=== PATIENT | female | born 1940 ===

== ENCOUNTER 2020-02-10 21:53 | Inpatient (IN) | payer MEDICARE, OTHER ==
[~2020-02-10] VITALS: Ht 152.4 cm; Wt 59.0 kg
[2020-02-10] MEDS ORDERED: VANCOMYCIN IV 1,000 MG in IV DEXTROSE 5% 250 ML IV ONE (23:00)
[2020-02-10] MEDS ORDERED: PIPERACILLIN SODIUM/TAZOBACTAM 3.375 G in IV DEXTROSE 5% 50 ML IV ONE (23:00)
[2020-02-10] MEDS ORDERED: CEFTRIAXONE 1 G in IV DEXTROSE 5% 50 ML IV ONE (23:00)
[2020-02-10] MEDS ORDERED: AMLO10TA59 PO (23:10)
[2020-02-10] MEDS ORDERED: CRAN425C6 PO (23:10)
[2020-02-10] MEDS ORDERED: ROSU20TA2 PO (23:10)
[2020-02-10] MEDS ORDERED: CHOL10005 PO (23:10)
[2020-02-10] MEDS ORDERED: MIRT-121 PO (23:10)
[2020-02-10] MEDS ORDERED: ICOS1CAP PO (23:10)
[2020-02-10] MEDS ORDERED: MEMA5TAB PO (23:10)
[2020-02-10] MEDS ORDERED: ASCO500C18 PO (23:10)
[2020-02-10] MEDS ORDERED: ZINC1CAP2 PO (23:10)
[2020-02-10] MEDS ORDERED: ICOS1CAP2 (23:10)
[2020-02-10] MEDS ORDERED: ACET-2154 PO (23:10)
[2020-02-10] MEDS ORDERED: COLL30OI TOP (23:10)
[2020-02-10] MEDS ORDERED: INSU100V28 (23:10)
[2020-02-10] MEDS ORDERED: MULT-213 PO (23:10)
[2020-02-10] MEDS ORDERED: DOCU-141 PO (23:10)
[2020-02-10] MEDS ORDERED: AMIN30LI27 PO (23:10)
[2020-02-10] MEDS ORDERED: MAGN400O6 PO (23:10)
[2020-02-10] MEDS ORDERED: quercetin PO (23:10)
[2020-02-10 23:30] LABS: BASOPHILS % (AUTO) 0.4 % (0.0-2.0); EOSINOPHILS # (AUTO) 0.1 K/uL (0.0-0.7); EOSINOPHILS % (AUTO) 0.7 % (0.0-7.0); HEMATOCRIT 28.6 % (31.2-41.9); HEMOGLOBIN 9.2 g/dL (10.9-14.3); LYMPHOCYTES # (AUTO) 1.7 K/uL (20.0-40.0); LYMPHOCYTES % (AUTO) 19.9 % (20.5-51.5); MEAN CORPUSCULAR HEMOGLOBIN 25.6 uug (24.7-32.8); MEAN CORPUSCULAR HGB CONC 32 g/dL (32.3-35.6); MEAN CORPUSCULAR VOLUME 79.2 fL (75.5-95.3); MONOCYTES # (AUTO) 0.4 K/uL (2.0-10.0); MONOCYTES % (AUTO) 4.9 % (0.0-11.0); NEUTROPHILS # (AUTO) 6.3 K/uL (1.8-8.9); NEUTROPHILS % (AUTO) 74.1 % (38.5-71.5); PLATELET COUNT (AUTO) 327 K/uL (179-408); RED BLOOD CELL COUNT(AUTO) 3.61 MIL/uL (3.63-4.92); WHITE BLOOD COUNT (AUTO) 8.4 K/uL (3.8-11.8)
[2020-02-10 23:41] LABS: CREATININE 0.8 mg/dL (0.6-1.3); POTASSIUM 3.8 mmol/L (3.5-5.1)
[2020-02-10] MEDS ORDERED: VANCOMYCIN IV 200 ML ONE (23:43)
[2020-02-10] MEDS ORDERED: PIPERACILLIN/TAZOBACTAM/D5W 50 ML IV ONE (23:43)
[2020-02-10] MEDS ORDERED: CEFTRIAXONE /D5W 50ML IVPB **ER PYXIS IV ONE (23:43)
[2020-02-10 23:54] LABS: BILIRUBIN,DIRECT 0.1 mg/dL (0.0-0.2); BILIRUBIN,TOTAL 0.2 mg/dL (0.2-1.0); TOTAL PROTEIN, SERUM 6.8 g/dL (6.4-8.2)
--- NOTE | 2020-02-11 00:04 | NUR ---
US at bedside for scan.
[2020-02-11] MEDS ORDERED: OLANZAPINE 10 MG VIAL IM ONE ×2 (01:00→01:04)
[2020-02-11] MEDS ORDERED: ACETAMINOPHEN 325 MG TABLET PO PRN ×2 (01:45)
[2020-02-11] MEDS ORDERED: DEXTROSE 50% 50 ML DISP.SYRIN IV PRN (01:45)
[2020-02-11] MEDS ORDERED: MAGNESIUM HYDROXIDE 30 ML LIQUID UDC PO PRN ×2 (01:45)
[2020-02-11] MEDS ORDERED: Z GUARD REMEDY PASTE 57 GM TUBE TOP PRN (01:45)
[2020-02-11] MEDS ORDERED: ENOXAPARIN SODIUM 40 MG/0.4 ML DISP.SYRIN SQ SCH (01:45)
[2020-02-11] MEDS ORDERED: ONDANSETRON 4 MG/2 ML VIAL IV PRN (01:45)
--- NOTE | 2020-02-11 05:10 | NUR ---
ADMITTED PATIENT ON TELE FLOOR UNDER THE CARE OF MARIAM HORTA. PATIENT AWAKE SPEAK TURKMEN BUT UNDER SIMPLE TAMAZIGHT. PATIENT INCONTINENT OF BLADDER, WITH R FOOT CELLULITIS SWELLING AND DRAINING WITH CLEAR COLOR FLUIDS IN MODERATE AMOUNT. PATIENT TELE MONITOR SINUS RHYTHM, PATIENT FORGETFUL MULTIPLE TIMES OF TRYING TO PULLED OUT IV LINES, REDIRECTED BUT FORGETFUL. CONT TO MONITOR.
--- NOTE | 2020-02-11 05:10 | NUR ---
Report given to BRAYAN Diaz Patient transported to [place] in stable condition.
[2020-02-11 05:20] VITALS: BP 151/68
[2020-02-11] MEDS: PANTOPRAZOLE SODIUM 40 MG TABLET.DR PO SCH (07:09)
[2020-02-11] MEDS: BLOOD SUGAR DIAGNOSTIC 1 EACH STRIP VI SCH ×4 (07:15→21:16)
[2020-02-11] MEDS: IV NS 1000 ML 1,000 ML IV PRN (07:35)
--- NOTE | 2020-02-11 07:40 | NUR ---
RECEIVED PATIENT IN ROOM ASLEEP, CONFUSED. WITHDRAWS TO PAIN STIMULATION. NO SIGNS OF DISTRESS AT THIS TIME. RIGHT FOOT WRAPED IN KERLEX AND INTACT. LT HAD IV INTACT. SAFETY AND FALL PRECAUTIONS IN PLACE. WILL CONTINUE TO MONITOR.
[2020-02-11] MEDS: CEFEPIME HCL 2 G in IV DEXTROSE 5% 100 ML IV SCH ×3 (08:30→21:04)
[2020-02-11] MEDS ORDERED: Medication Not On Formulary EA (Cranberry Extract (Cranberry) 425 MG) PO SCH (09:00)
[2020-02-11] MEDS: PROTEIN SUPPLEMENT (PROSTAT) 30 ML LIQUID PO SCH (09:00)
[2020-02-11] MEDS: MEMANTINE HCL 5 MG TABLET PO SCH (09:00)
[2020-02-11] MEDS ORDERED: QUERCETIN 500 MG PO SCH (09:00)
[2020-02-11] MEDS: CHOLECALCIFEROL 1,000 UNIT TABLET PO SCH (09:00)
[2020-02-11] MEDS: DOCUSATE SODIUM 100 MG CAPSULE PO SCH (09:00)
[2020-02-11] MEDS: MULTIVITAMINS,THERAPEUTIC TABLET PO SCH (09:00)
[2020-02-11] MEDS: ASCORBIC ACID 500 MG TABLET PO SCH (09:00)
[2020-02-11] MEDS: AMLODIPINE 10 MG TABLET PO SCH (09:00)
[2020-02-11] MEDS: ZINC SULFATE 220 MG CAPSULE PO SCH (09:00)
--- NOTE | 2020-02-11 09:34 | NUR ---
MAXEPINE IV ABX GIVEN AT 0830. LARRY OPERATOR NURSE UNABLE TO GIVE. PATIENT VERY CONFUSED AND LETHARGIC. UNABLE TO GIVE AM MEDICATIONS ORDERED.
[2020-02-11] MEDS: VANCOMYCIN IV 750 MG in IV DEXTROSE 5% 250 ML IV SCH (11:26)
[2020-02-11 12:00] VITALS: BP 126/51
[2020-02-11] MEDS ORDERED: LIDOCAINE HCL 1% 20 ML VIAL IJ ONE (14:30)
[2020-02-11 16:00] VITALS: BP 107/59
[2020-02-11 17:07] LABS: BASOPHILS % (AUTO) 0.6 % (0.0-2.0); EOSINOPHILS % (AUTO) 0.5 % (0.0-7.0); HEMATOCRIT 29.2 % (31.2-41.9); HEMOGLOBIN 9.4 g/dL (10.9-14.3); LYMPHOCYTES # (AUTO) 1.4 K/uL (20.0-40.0); LYMPHOCYTES % (AUTO) 18.4 % (20.5-51.5); MEAN CORPUSCULAR HEMOGLOBIN 25.6 uug (24.7-32.8); MEAN CORPUSCULAR HGB CONC 32 g/dL (32.3-35.6); MEAN CORPUSCULAR VOLUME 79.3 fL (75.5-95.3); MONOCYTES # (AUTO) 0.4 K/uL (2.0-10.0); MONOCYTES % (AUTO) 4.9 % (0.0-11.0); NEUTROPHILS # (AUTO) 5.8 K/uL (1.8-8.9); NEUTROPHILS % (AUTO) 75.6 % (38.5-71.5); PLATELET COUNT (AUTO) 329 K/uL (179-408); RED BLOOD CELL COUNT(AUTO) 3.68 MIL/uL (3.63-4.92); WHITE BLOOD COUNT (AUTO) 7.7 K/uL (3.8-11.8)
[2020-02-11 17:18] LABS: CREATININE 0.8 mg/dL (0.6-1.3); POTASSIUM 4.1 mmol/L (3.5-5.1)
[2020-02-11 17:32] LABS: BILIRUBIN,TOTAL 0.2 mg/dL (0.2-1.0); MAGNESIUM 2.2 mg/dL (1.8-2.4); PHOSPHOROUS 3.5 mg/dL (2.5-4.9); TOTAL PROTEIN, SERUM 6.4 g/dL (6.4-8.2)
[2020-02-11 17:43] LABS: THYROID STIMULATING HORMONE 4.253 mIU/mL (0.358-3.740)
--- NOTE | 2020-02-11 19:30 | NUR ---
RECEIVED PT AWAKE AND IN NO ACUTE DISTRESS. IV INTACT.SAFETY AND COMFORT PROVIDED. WILL CONTINUE TO MONITOR.
[2020-02-11 20:07] VITALS: BP 137/64
[2020-02-11] MEDS: ATORVASTATIN 40 MG TABLET PO SCH (20:56)
[2020-02-11] MEDS: MIRTAZAPINE 15 MG TABLET PO SCH (20:56)
[2020-02-11] MEDS: ENOXAPARIN SODIUM 40 MG/0.4 ML DISP.SYRIN SQ SCH (20:57)
[2020-02-11 21:00] VITALS: BP 141/61
[2020-02-11] MEDS: HYDROCODONE/APAP 5-325MG TABLET PO PRN (22:33)
--- NOTE | 2020-02-11 23:33 | NUR ---
PT GIVEN NORCO PRN AT 2233H FOR PAIN. PT WOUND DRESSING CHANGED AND TOOK PICTURE FOR CHARTING. AFTER AN HOUR PT RESTING WELL AND PAIN SUBSIDED PER PT. SAFETY PROVIDED. WILL CONTINUE TO MONITOR.
[2020-02-12 04:06] VITALS: BP 121/85
[2020-02-12] MEDS: CEFEPIME HCL 2 G in IV DEXTROSE 5% 100 ML IV SCH ×3 (05:00→22:26)
[2020-02-12] MEDS: PANTOPRAZOLE SODIUM 40 MG TABLET.DR PO SCH (06:06)
--- NOTE | 2020-02-12 06:13 | NUR ---
PT SLEPT COMFORTABLY. PT IN NO ACUTE DISTRESS. IV INTACT. PT ON SOFT RESTRAINT. PT TURNED AND REPOSITIONED. DRESSING CHANGED. SAFETY AND COMFORT PROVIDED. WILL ENDORSE TO INCOMING NURSE FOR CONTINUITY OF CARE.
[2020-02-12] MEDS: BLOOD SUGAR DIAGNOSTIC 1 EACH STRIP VI SCH ×5 (06:33→22:00)
--- NOTE | 2020-02-12 07:49 | NUR ---
WOUND CARE CONSULT: (LATE ENTRY) PT WAS SEEN FOR SKIN ASSESSMENT ON 02/12/20 AND NOTED TO HAVE ULCERS WITH SWELLING AND PURULENT DRAINAGE TO RT DORSAL AND PLANTAR FOOT, PRESENT ON ADMISSION. DPM CONSULT WAS CALLED TO DR GRANDE. RECOMMENDATIONS MADE FOR SKIN PROTECTION. DISCUSSED WITH NURSING STAFF. IN AGREEMENT WITH PLAN OF CARE. Addendum: 02/12/20 at 0753 by YANY MEADE RN CORRECTION: PT WAS SEEN ON 02/11/20 FOR WOUND ASSESSMENT.
[2020-02-12] MEDS: DOCUSATE SODIUM 100 MG CAPSULE PO SCH (09:22)
[2020-02-12] MEDS: MEMANTINE HCL 5 MG TABLET PO SCH (09:23)
[2020-02-12] MEDS: AMLODIPINE 10 MG TABLET PO SCH (09:27)
[2020-02-12] MEDS: ASCORBIC ACID 500 MG TABLET PO SCH (09:27)
[2020-02-12] MEDS: CHOLECALCIFEROL 1,000 UNIT TABLET PO SCH (09:28)
[2020-02-12] MEDS: MULTIVITAMINS,THERAPEUTIC TABLET PO SCH (09:30)
[2020-02-12] MEDS: PROTEIN SUPPLEMENT (PROSTAT) 30 ML LIQUID PO SCH (09:30)
[2020-02-12] MEDS: ZINC SULFATE 220 MG CAPSULE PO SCH (09:31)
[2020-02-12] MEDS: OMEGA-3 FATTY ACIDS/FISH OIL CAPSULE PO SCH (09:31)
[2020-02-12] MEDS: IV NS 1000 ML 1,000 ML IV PRN (10:05)
[2020-02-12] MEDS: VANCOMYCIN IV 750 MG in IV DEXTROSE 5% 250 ML IV SCH (11:23)
[2020-02-12 11:52] VITALS: BP 113/58
[2020-02-12] MEDS: INSULIN REGULAR, HUMAN 300 UNIT/3 ML VIAL SQ PRN (11:53)
--- NOTE | 2020-02-12 12:35 | NUR ---
Pt. for MRI right foot today for right foot pain and cellulitis. supervisor grips by ambulance at 1345. Pt. no c/o of pain/discomfort noted. Pt. continue IV ATB tx for cellulitis. will continue monitor
[2020-02-12 13:25] LABS: CREATININE 0.7 mg/dL (0.6-1.3)
--- NOTE | 2020-02-12 15:54 | NUR ---
Pt. left for MRI right foot via ambulance with 2 EMT in stable condition around 2pm. Remove soft restraint with fair effect. Advice EMT to check Pt for IV access removal.
[2020-02-12 16:39] VITALS: BP 128/53
--- NOTE | 2020-02-12 17:42 | NUR ---
End of Shift note: Pt. came back from MRI in stable condition around 4pm. Pt. stay without soft restraint to observe her behavior. After 30minutes, Pt. remove IV access and went out from bed without asking for help. Urinate in the floor. Pt. return back to bed with assistance and put back the restraint. will continue monitor
--- NOTE | 2020-02-12 19:00 | NUR ---
Pt. seen walking inside the room. Urinate in the floor. Pt. able to remove restraint and pulled out IV. Pt. assisted going back to bed. applied restraint. no skin issue noted. Pt for IV reinsertion. endorse to oncoming nurse
--- NOTE | 2020-02-12 20:00 | NUR ---
RECEIVED PT IN BED, CONFUSED AND ANXIOUS, ACCIDENTALLY PULLED OUT HER IV ON LEFT HAND, NEEDS ATTENDEDTO..NO ACUTE DISTRESS NOTED.WANDERER, ABLE TO GET OUT OF THE RESTRAINT, ASSISTED TO BR VOIDED FREELY WELL,KEPT DRY AND CLEAN,
[2020-02-12 20:06] VITALS: BP 162/80
[2020-02-12] MEDS: ENOXAPARIN SODIUM 40 MG/0.4 ML DISP.SYRIN SQ SCH (22:37)
[2020-02-12] MEDS: ATORVASTATIN 40 MG TABLET PO SCH (22:38)
[2020-02-12] MEDS: MIRTAZAPINE 15 MG TABLET PO SCH (22:38)
--- NOTE | 2020-02-13 | NUR ---
INCONTINENT OF URINE, REPOSITIONED IN BED, COMPLETE LINEN CHANGED DONE.DUE MEDS GIVEN.TOLERATED WELL.
[2020-02-13 04:50] VITALS: BP 127/62
--- NOTE | 2020-02-13 04:57 | NUR ---
PT FOUND STANDING BY THE DOOR,,SHE DOESNT REALIZE THAT SHE IS PULLING HER IV POLE.INSTRUCTED TO GO BACK TO BED,KIND A HESITANT, AM CARE DONE.CONTINUE TO MONITOR BEHAVIOR.
[2020-02-13] MEDS: CEFEPIME HCL 2 G in IV DEXTROSE 5% 100 ML IV SCH ×3 (05:59→22:18)
[2020-02-13] MEDS: PANTOPRAZOLE SODIUM 40 MG TABLET.DR PO SCH (06:00)
--- NOTE | 2020-02-13 07:20 | NUR ---
Received PT in bed, awake and alert. No acute distress or no shortness of breath noted. PT looked calm and relaxed. Safety measures provided, call light within reach, bed low and lock. Will continue to monitor.
[2020-02-13] MEDS: BLOOD SUGAR DIAGNOSTIC 1 EACH STRIP VI SCH ×3 (07:24→17:02)
[2020-02-13 08:00] VITALS: BP 118/50
[2020-02-13] MEDS: MEMANTINE HCL 5 MG TABLET PO SCH (09:00)
[2020-02-13] MEDS: MULTIVITAMINS,THERAPEUTIC TABLET PO SCH (09:00)
[2020-02-13] MEDS: ZINC SULFATE 220 MG CAPSULE PO SCH (09:00)
[2020-02-13] MEDS: CHOLECALCIFEROL 1,000 UNIT TABLET PO SCH (09:00)
[2020-02-13] MEDS: OMEGA-3 FATTY ACIDS/FISH OIL CAPSULE PO SCH (09:00)
[2020-02-13] MEDS: PROTEIN SUPPLEMENT (PROSTAT) 30 ML LIQUID PO SCH (09:01)
[2020-02-13] MEDS: DOCUSATE SODIUM 100 MG CAPSULE PO SCH (09:01)
[2020-02-13] MEDS: ASCORBIC ACID 500 MG TABLET PO SCH (09:01)
[2020-02-13] MEDS: AMLODIPINE 10 MG TABLET PO SCH (09:02)
--- NOTE | 2020-02-13 10:00 | NUR ---
PT was found standing by the door and pulling on the IV site. PT was trying to pull tubes out. Had to redirect PT back to bed. Safety measure provided, call light within reach, bed alarm on, bed low and lock. Will continue to monitor.
[2020-02-13] MEDS: VANCOMYCIN IV 750 MG in IV DEXTROSE 5% 250 ML IV SCH (11:31)
[2020-02-13] MEDS: INSULIN REGULAR, HUMAN 300 UNITS/3 ML VIAL SQ PRN ×2 (11:32→17:11)
[2020-02-13 12:00] VITALS: BP 144/66
--- NOTE | 2020-02-13 14:45 | NUR ---
PT was seen by Dr. Angela Wells RE: foot wound. Scheduled IND procedure for tomorrow, Tuesday 02/13 at 1430. PT's son spoke to MD. Consent was given over the phone to 2 nurses. Son spoke to PT on the phone and PT aware of procedure tomorrow. Dr. Bartholomew made aware. Safety measures provided, call light within reach, bed low and lock.
--- NOTE | 2020-02-13 18:25 | NUR ---
PT in awake and standing up near door. Needs frequent redirection to use call light when standing due to safety. PT put back to bed with safety measures. Call light within reach, bed low and lock. Continue to monitor for safety. Will endorse to lead applications developer nurse.
[2020-02-13] MEDS: IV NS 1000 ML 1,000 ML IV PRN (18:40)
[2020-02-13 20:12] VITALS: BP 155/73
[2020-02-13] MEDS: ATORVASTATIN 40 MG TABLET PO SCH (22:08)
[2020-02-13] MEDS: MIRTAZAPINE 15 MG TABLET PO SCH (22:09)
[2020-02-13] MEDS: ENOXAPARIN SODIUM 40 MG/0.4 ML DISP.SYRIN SQ SCH (22:16)
[2020-02-14 04:18] VITALS: BP 130/61
[2020-02-14] MEDS: PANTOPRAZOLE SODIUM 40 MG TABLET.DR PO SCH (06:29)
[2020-02-14] MEDS: CEFEPIME HCL 2 G in IV DEXTROSE 5% 100 ML IV SCH ×3 (06:30→21:23)
[2020-02-14] MEDS: ZINC SULFATE 220 MG CAPSULE PO SCH (10:40)
[2020-02-14] MEDS: BLOOD SUGAR DIAGNOSTIC 1 EACH STRIP VI SCH ×4 (10:40→21:34)
[2020-02-14] MEDS: OMEGA-3 FATTY ACIDS/FISH OIL CAPSULE PO SCH (10:41)
[2020-02-14] MEDS: ASCORBIC ACID 500 MG TABLET PO SCH (10:41)
[2020-02-14] MEDS: CHOLECALCIFEROL 1,000 UNIT TABLET PO SCH (10:41)
[2020-02-14] MEDS: DOCUSATE SODIUM 100 MG CAPSULE PO SCH (10:41)
[2020-02-14] MEDS: MULTIVITAMINS,THERAPEUTIC TABLET PO SCH (10:41)
[2020-02-14] MEDS: MEMANTINE HCL 5 MG TABLET PO SCH (10:41)
[2020-02-14] MEDS: AMLODIPINE 10 MG TABLET PO SCH (10:44)
[2020-02-14] MEDS: PROTEIN SUPPLEMENT (PROSTAT) 30 ML LIQUID PO SCH (10:45)
[2020-02-14 11:47] VITALS: BP 103/64
[2020-02-14] MEDS: VANCOMYCIN IV 750 MG in IV DEXTROSE 5% 250 ML IV SCH (12:20)
[2020-02-14 16:08] VITALS: BP 127/48
[2020-02-14] MEDS: INSULIN REGULAR, HUMAN 300 UNIT/3 ML VIAL SQ PRN (16:14)
[2020-02-14 20:18] VITALS: BP 142/69
[2020-02-14] MEDS: ATORVASTATIN 40 MG TABLET PO SCH (21:29)
[2020-02-14] MEDS: MIRTAZAPINE 15 MG TABLET PO SCH (21:29)
[2020-02-14] MEDS: ENOXAPARIN SODIUM 40 MG/0.4 ML DISP.SYRIN SQ SCH (21:37)
--- NOTE | 2020-02-15 02:18 | NUR ---
AAO x1 Confused and disoriented. Admitted for right foot cellulitis. Right foot dressing intact. Patient for I & D of the right foot this am. NPO after MN. Consent signed. VSS. IVF's infusing well. IV ABT's given as scheduled. Tolerated well. No ill effects noted. Will monitor patient. Incontinent of urine x3 Kept clean and dry. Bilateral wrist restraints on. Fall precautions maintained. Siderails up for safety.
[2020-02-15 04:52] VITALS: BP 124/55
[2020-02-15] MEDS: CEFEPIME HCL 2 G in IV DEXTROSE 5% 100 ML IV SCH ×3 (05:05→21:45)
[2020-02-15] MEDS: VANCOMYCIN IV 750 MG in IV DEXTROSE 5% 250 ML IV SCH ×2 (05:53→23:37)
[2020-02-15] MEDS: PANTOPRAZOLE SODIUM 40 MG TABLET.DR PO SCH (06:13)
[2020-02-15] MEDS: BLOOD SUGAR DIAGNOSTIC 1 EACH STRIP VI SCH ×4 (06:33→21:39)
--- NOTE | 2020-02-15 06:51 | NUR ---
End of shift notes: Patient for I & D of the right foot today. NPO maintained. VSS. IVF's infusing well. IV ABT given as scheduled. Will monitor patient. no acute distress noted.
[2020-02-15] MEDS: MULTIVITAMINS,THERAPEUTIC TABLET PO SCH (09:00)
[2020-02-15] MEDS: PROTEIN SUPPLEMENT (PROSTAT) 30 ML LIQUID PO SCH (09:00)
[2020-02-15] MEDS: CHOLECALCIFEROL 1,000 UNIT TABLET PO SCH (09:00)
[2020-02-15] MEDS: ASCORBIC ACID 500 MG TABLET PO SCH (09:00)
[2020-02-15] MEDS: MEMANTINE HCL 5 MG TABLET PO SCH (09:00)
[2020-02-15] MEDS: DOCUSATE SODIUM 100 MG CAPSULE PO SCH (09:00)
[2020-02-15] MEDS: ZINC SULFATE 220 MG CAPSULE PO SCH (09:00)
[2020-02-15] MEDS: OMEGA-3 FATTY ACIDS/FISH OIL CAPSULE PO SCH (09:00)
[2020-02-15] MEDS: AMLODIPINE 10 MG TABLET PO SCH (09:00)
[2020-02-15 09:40] LABS: CREATININE 0.9 mg/dL (0.6-1.3); POTASSIUM 4.2 mmol/L (3.5-5.1)
[2020-02-15] MEDS ORDERED: DEXTROSE 50% 50 ML DISP.SYRIN ONE (09:40)
[2020-02-15] MEDS ORDERED: BUPIVACAINE PF 0.5% 30 ML VIAL ONE (10:09)
[2020-02-15 11:00] VITALS: BP 101/62
--- NOTE | 2020-02-15 12:00 | NUR ---
received from surgery sleeping comfortably at this time in no acute distress. og surgical drsg in place told by or nurse not to touch at this time. advance diet as nash
[2020-02-15 16:00] VITALS: BP 134/71
--- NOTE | 2020-02-15 16:43 | NUR ---
evening blood sugar 111 no cover needed
[2020-02-15 20:00] VITALS: BP 123/52
[2020-02-15] MEDS: MIRTAZAPINE 15 MG TABLET PO SCH ×2 (21:19→21:33)
[2020-02-15] MEDS: ATORVASTATIN 40 MG TABLET PO SCH (21:32)
[2020-02-15] MEDS: ENOXAPARIN SODIUM 40 MG/0.4 ML DISP.SYRIN SQ SCH (21:39)
[2020-02-16 04:00] VITALS: BP 122/46
--- NOTE | 2020-02-16 04:20 | NUR ---
S/P I & D of the right foot POD #1 Needs attended. Dressing intact. Will monitor patient. IVF's infusing well. On IV ABT given as scheduled. No acute distress noted. VSS. Kept comfortable. Incontinent of urine. No BM noted this shift. Will monitor patient.
[2020-02-16] MEDS: CEFEPIME HCL 2 G in IV DEXTROSE 5% 100 ML IV SCH ×3 (05:28→22:06)
[2020-02-16] MEDS: PANTOPRAZOLE SODIUM 40 MG TABLET.DR PO SCH (06:35)
[2020-02-16] MEDS: BLOOD SUGAR DIAGNOSTIC 1 EACH STRIP VI SCH ×4 (06:37→21:00)
[2020-02-16] MEDS: MULTIVITAMINS,THERAPEUTIC TABLET PO SCH (09:39)
[2020-02-16] MEDS: AMLODIPINE 10 MG TABLET PO SCH (09:39)
[2020-02-16] MEDS: MEMANTINE HCL 5 MG TABLET PO SCH (09:39)
[2020-02-16] MEDS: ZINC SULFATE 220 MG CAPSULE PO SCH (09:39)
[2020-02-16] MEDS: CHOLECALCIFEROL 1,000 UNIT TABLET PO SCH (09:39)
[2020-02-16] MEDS: DOCUSATE SODIUM 100 MG CAPSULE PO SCH (09:39)
[2020-02-16] MEDS: OMEGA-3 FATTY ACIDS/FISH OIL CAPSULE PO SCH (09:39)
[2020-02-16] MEDS: ASCORBIC ACID 500 MG TABLET PO SCH (09:39)
[2020-02-16] MEDS: PROTEIN SUPPLEMENT (PROSTAT) 30 ML LIQUID PO SCH (09:56)
--- NOTE | 2020-02-16 11:01 | NUR ---
Confused and disoriented. VS taken and recorded. BP 176/65 HR 79 All due meds given. Bilateral wrist restraints intact. IVF's infusing well. I & O monitor. No distress noted. Kept comfortable.
[2020-02-16 11:23] VITALS: BP 129/58
[2020-02-16] MEDS: INSULIN REGULAR, HUMAN 300 UNIT/3 ML VIAL SQ PRN (11:44)
[2020-02-16 15:28] VITALS: BP 124/58
--- NOTE | 2020-02-16 15:38 | NUR ---
Patient is able to follow simple commands. Resting and ad david in bed. Denies any pain or discomfort. She is able to track and responding well to questions in lummi language.
[2020-02-16] MEDS: VANCOMYCIN IV 750 MG in IV DEXTROSE 5% 250 ML IV SCH (18:02)
[2020-02-16 19:04] LABS: CREATININE 0.9 mg/dL (0.6-1.3); POTASSIUM 3.8 mmol/L (3.5-5.1)
--- NOTE | 2020-02-16 19:30 | NUR ---
Pt received awake and in bed. AOx2. Does not appear to be in any distress at this time. No SOB noted, pt on RA. Bed locked and in lowest position. Pt has mitten restraints due to safety concerns. No other issues or concerns at this time.
[2020-02-16 20:44] VITALS: BP 143/64
[2020-02-16] MEDS: ATORVASTATIN 40 MG TABLET PO SCH (22:07)
[2020-02-16] MEDS: ENOXAPARIN SODIUM 40 MG/0.4 ML DISP.SYRIN SQ SCH (22:09)
--- NOTE | 2020-02-16 22:20 | NUR ---
Pts glucose was 68. Was given orange juice. Pt is awake and alert to self. Does not appear to be in any acute distress at this time.
[2020-02-17] MEDS ORDERED: MIRTAZAPINE 15 MG TABLET PO ONE (01:00)
[2020-02-17] MEDS: HYDROCODONE/APAP 5-325MG TABLET PO PRN ×2 (04:34→22:59)
[2020-02-17 04:56] VITALS: BP 138/61
[2020-02-17] MEDS: IV NS 1000 ML 1,000 ML IV PRN (05:57)
[2020-02-17] MEDS: PANTOPRAZOLE SODIUM 40 MG TABLET.DR PO SCH (06:38)
[2020-02-17] MEDS: CEFEPIME HCL 2 G in IV DEXTROSE 5% 100 ML IV SCH ×3 (06:38→22:00)
[2020-02-17] MEDS: BLOOD SUGAR DIAGNOSTIC 1 EACH STRIP VI SCH ×4 (06:44→21:00)
--- NOTE | 2020-02-17 06:54 | NUR ---
Pt slept intermittently throughout the night. No SOB or pain at this time. Wound care and wound packing completed on R foot. Tolerated wound care well. Fluids and snacks offered throughout pt being on restraints. Safety and comfort provided. No other issues or concerns at this time. Will endorse to day shift.
[2020-02-17 07:58] LABS: CREATININE 0.9 mg/dL (0.6-1.3); POTASSIUM 3.1 mmol/L (3.5-5.1)
[2020-02-17] MEDS: POTASSIUM CHLORIDE 20 MEQ TAB.PRT.SR PO ONE ×2 (09:30→09:48)
[2020-02-17] MEDS: CHOLECALCIFEROL 1,000 UNIT TABLET PO SCH (09:47)
[2020-02-17] MEDS: MEMANTINE HCL 5 MG TABLET PO SCH (09:48)
[2020-02-17] MEDS: MULTIVITAMINS,THERAPEUTIC TABLET PO SCH (09:48)
[2020-02-17] MEDS: ASCORBIC ACID 500 MG TABLET PO SCH (09:48)
[2020-02-17] MEDS: ZINC SULFATE 220 MG CAPSULE PO SCH (09:48)
[2020-02-17] MEDS: OMEGA-3 FATTY ACIDS/FISH OIL CAPSULE PO SCH (09:48)
[2020-02-17] MEDS: DOCUSATE SODIUM 100 MG CAPSULE PO SCH (09:48)
[2020-02-17] MEDS: PROTEIN SUPPLEMENT (PROSTAT) 30 ML LIQUID PO SCH (09:49)
[2020-02-17] MEDS: AMLODIPINE 10 MG TABLET PO SCH (10:00)
[2020-02-17] MEDS: VANCOMYCIN IV 750 MG in IV DEXTROSE 5% 250 ML IV SCH (11:13)
--- NOTE | 2020-02-17 11:40 | NUR ---
ATTEMPTED TO GIVE PATIENT ONE TIME ORDER OF POTASSIUM PILL. PATIENT UNABLE TO SWALLOW LARGE PILLS. SPIT OUT FIRST PILL AND REFUSED TO TAKE THE OTHER. WILL NOTIFY .
[2020-02-17] MEDS: INSULIN REGULAR, HUMAN 300 UNIT/3 ML VIAL SQ PRN (11:45)
[2020-02-17 12:00] VITALS: BP 153/66
[2020-02-17] MEDS ORDERED: POTASSIUM CHLORIDE 20 MEQ POWDER PACKET PO ONE (12:30)
[2020-02-17 16:00] VITALS: BP 130/61
--- NOTE | 2020-02-17 16:17 | NUR ---
BLOOD GLUCOSE: 65. HYPOGLYCEMIC PROTOCOL INITIATED. GIVEN 4 OZ ORANGE JUICE. WILL RECHECK BLOOD GLUCOSE IN 30 MINS.
--- NOTE | 2020-02-17 19:00 | NUR ---
RECD PT IN BED, RESTING QUIETLY, NO ACUTE DISTRESS NOTED, NEEDS ATTENDED TO,IV SITE ON RIGHT FOREARM PATENT AND INTACT,IVFLUIDS INFUSING WELL.CONFUSED AND DISORIENTED. PA SOFT WRIST RESTRAINTS ON,RELEASED Q HOUR , ROM TO BOTH ARMS.TOLERATED WELL.
[2020-02-17 20:00] VITALS: BP 109/55
[2020-02-17] MEDS: ATORVASTATIN 40 MG TABLET PO SCH (21:00)
--- NOTE | 2020-02-17 22:55 | NUR ---
HS CARE RENDERED,RIGHT FOOT DRESSING DRY AND INTACT,PT OBSERVED EL IRRITABLE , FACIALGRIMACING NOTED, MEDICATED W/ NORCO . KEPT WARM AND DRY.BS 106,HS SNACKS GIVEN,SLEPT INTERMITTENTLY.SAFETY PRECAUTIONS OBSERVED AND MAINTAINED.
[2020-02-17] MEDS: ENOXAPARIN SODIUM 40 MG/0.4 ML DISP.SYRIN SQ SCH (23:09)
[2020-02-17] MEDS: MIRTAZAPINE 15 MG TABLET PO SCH (23:46)
--- NOTE | 2020-02-18 03:35 | NUR ---
INCONTINENTOF LARGE AMT OF URINE, CLEANED AND KEPT DRY, NO SSX OF DIABETIC CRISIS. CALL ELLEN W/MICKIE.
[2020-02-18 04:18] VITALS: BP 132/67
[2020-02-18] MEDS: VANCOMYCIN IV 750 MG in IV DEXTROSE 5% 250 ML IV SCH (05:50)
[2020-02-18] MEDS: PANTOPRAZOLE SODIUM 40 MG TABLET.DR PO SCH (05:50)
[2020-02-18] MEDS: CEFEPIME HCL 2 G in IV DEXTROSE 5% 100 ML IV SCH (05:51)
--- NOTE | 2020-02-18 07:30 | NUR ---
Received patient resting in bed, confused. Patient denies any patient and shows no sign of distress. Patient is on restraints to prevent pulling out of IV lines. Safety precautions are in place with call light and belongings within reach. Will continue to monitor.
[2020-02-18] MEDS: BLOOD SUGAR DIAGNOSTIC 1 EACH STRIP VI SCH (08:07)
[2020-02-18] MEDS: ZINC SULFATE 220 MG CAPSULE PO SCH (09:01)
[2020-02-18] MEDS: CHOLECALCIFEROL 1,000 UNIT TABLET PO SCH (09:01)
[2020-02-18] MEDS: MEMANTINE HCL 5 MG TABLET PO SCH (09:01)
[2020-02-18] MEDS: ASCORBIC ACID 500 MG TABLET PO SCH (09:01)
[2020-02-18] MEDS: DOCUSATE SODIUM 100 MG CAPSULE PO SCH (09:01)
[2020-02-18] MEDS: PROTEIN SUPPLEMENT (PROSTAT) 30 ML LIQUID PO SCH (09:01)
[2020-02-18] MEDS: MULTIVITAMINS,THERAPEUTIC TABLET PO SCH (09:01)
[2020-02-18] MEDS: OMEGA-3 FATTY ACIDS/FISH OIL CAPSULE PO SCH (09:01)
[2020-02-18] MEDS: AMLODIPINE 10 MG TABLET PO SCH (09:05)
[2020-02-18] MEDS: IV NS 1000 ML 1,000 ML IV PRN (09:11)
[2020-02-18 09:35] LABS: CREATININE 0.8 mg/dL (0.6-1.3); POTASSIUM 3.7 mmol/L (3.5-5.1)
[2020-02-18] MEDS ORDERED: PROTEIN SUPPLEMENT (PROSTAT) 30 ML LIQUID PO SCH (12:00)
[2020-02-18] MEDS ORDERED: PANT40TA2 PO (12:08)
[2020-02-18] MEDS ORDERED: CEFE1VIA3 IV (12:08)
[2020-02-18] MEDS ORDERED: ACID1TAB4 PO (12:08)
[2020-02-18] MEDS ORDERED: PROT30LI PO (12:08)
[2020-02-18] MEDS ORDERED: RXVAN XX (12:08)
[2020-02-18 12:09] VITALS: BP 134/62
[2020-02-18] MEDS ORDERED: GLIP5TAB13 PO (12:18)
[2020-02-18] MEDS ORDERED: LISI2.5T2 PO (12:18)
[2020-02-18] MEDS ORDERED: ASPI-618 PO (12:18)
--- NOTE | 2020-02-18 14:15 | NUR ---
Patient discharge to [facility]. All discharge paperwork completed and placed in patient's chart. Discharge report given to nurse at the facility. Picture documentation and dressing change done for patient before discharge. ID band removed, All medications given as ordered. Report and paperwork also given to the ambulance transport. Belongings list done.
== END 2020-02-18 14:15 | DRG 981 ==
LOC: ER 22:07 → TELE3 02-11 04:55 → MEDSURG3 02-11 07:00 → MED 02-13 22:50 → MEDSURG3 02-13 23:00
PROVIDERS: ADMIT Internal Medicine; ATTEND Internal Medicine
PROC: 0LBV0ZZ Excision of Right Foot Tendon, Open Approach (ICD-10-PCS; principal; 2020-02-11)
PROC: 0Y9M0ZZ Drainage of Right Foot, Open Approach (ICD-10-PCS; 2020-02-15)
DX: E11.52 Type 2 diabetes mellitus with diabetic peripheral angiopathy with gangrene (principal); E43 Unspecified severe protein-calorie malnutrition; A48.0 Gas gangrene; G93.41 Metabolic encephalopathy; L03.115 Cellulitis of right lower limb; L97.518 Non-pressure chronic ulcer of other part of right foot with other specified severity; M86.8X7 Other osteomyelitis, ankle and foot; I70.261 Atherosclerosis of native arteries of extremities with gangrene, right leg; L02.611 Cutaneous abscess of right foot; F03.91 Unspecified dementia, unspecified severity, with behavioral disturbance; L97.418 Non-pressure chronic ulcer of right heel and midfoot with other specified severity; R94.31 Abnormal electrocardiogram [ECG] [EKG]; E11.621 Type 2 diabetes mellitus with foot ulcer; E11.69 Type 2 diabetes mellitus with other specified complication; E11.40 Type 2 diabetes mellitus with diabetic neuropathy, unspecified; E78.5 Hyperlipidemia, unspecified; I10 Essential (primary) hypertension; R53.1 Weakness
CPT/HCPCS: 36415; 71045; 73630; 73723; 83735; 84100; 84443; 85025; 87040; 87070; 87077; 93005; A4217; A4649; A4663; G0378; J0692; J0696; J1650; J1815; J2358; J2543; J3370; J3490; J7030; J7040; J7060